=== PATIENT | male | born 2000 | race Caucasian/White ===

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

== ENCOUNTER 2021-05-09 18:12 | Emergency (ER) | payer MEDICAID ==
[~2021-05-09] VITALS: Ht 180.3 cm; Wt 65.0 kg
[~2021-05-09 18:12] MED LIST: ONDA4TAB12 PO
[2021-05-09] MEDS ORDERED: LORazepam 1 MG tablet PO ONE (18:20)
[2021-05-09 18:34] VITALS: BP 114/74
[2021-05-09] MEDS ORDERED: LORA-269 PO (18:48)
== END 2021-05-09 18:53 | disposition home or self-care (01) ==
LOC: ER 18:12
DX: R07.89 Other chest pain (principal); F41.9 Anxiety disorder, unspecified; R20.0 Anesthesia of skin; Z79.899 Other long term (current) drug therapy
CPT/HCPCS: 71045; 93005; 99283

== ENCOUNTER 2022-08-25 15:04 | Emergency (ER) | payer MEDICAID ==
[~2022-08-25] VITALS: Ht 182.9 cm; Wt 71.1 kg
[~2022-08-25 15:04] MED LIST changes: +LORA-269 PO
[2022-08-25 15:26] VITALS: BP 115/74
[2022-08-25 15:59] LABS: BASOPHILS # (AUTO) 0.1 X10'3 (0-0.2); BASOPHILS % (AUTO) 0.8 % (0-1); EOSINOPHILS # (AUTO) 0.6 X10'3 (0-0.9); EOSINOPHILS % (AUTO) 8.6 % (0-6); HEMATOCRIT 45.9 % (42.0-52.0); LYMPHOCYTES # (AUTO) 1.5 X10'3 (1.1-4.8); LYMPHOCYTES % (AUTO) 21.1 % (21-51); MEAN CORPUSCULAR HEMOGLOBIN 30.6 PG (27.0-31.0); MEAN CORPUSCULAR HGB CONC 34.7 g/dL (33.0-36.5); MEAN PLATELET VOLUME 7.2 FL (7.4-10.4); MONOCYTES # (AUTO) 0.5 X10'3 (0-0.9); MONOCYTES % (AUTO) 7.1 % (2-12); NEUTROPHILS # (AUTO) 4.4 X10'3 (1.8-7.7); NEUTROPHILS % (AUTO) 62.4 % (42-75); PLATELET COUNT 202 X10'3 (140-440); RED BLOOD COUNT 5.22 X10'6 (4.70-6.10); RED CELL DISTRIBUTION WIDTH 13.2 % (11.5-14.5); WHITE BLOOD COUNT 7.1 X10'3 (4.5-11.0)
[2022-08-25 16:06] LABS: ALANINE AMINOTRANSFERASE 10 U/L (12-78); ALBUMIN 4.5 G/DL (3.4-5.0); ALBUMIN/GLOBULIN RATIO 1.4 (1.1-1.5); ALKALINE PHOSPHATASE 85 IU/L (46-116); ANION GAP 3 (8-16); ASPARTATE AMINO TRANSFERASE 19 U/L (10-37); BILIRUBIN,TOTAL 0.5 MG/DL (0.1-1.0); BLOOD UREA NITROGEN 13 MG/DL (7-18); BUN/CREATININE RATIO 12.4 (5.4-32.0); CHLORIDE 102 MMOL/L (99-107); CREATININE 1.05 MG/DL (0.60-1.10); GLUCOSE 92 MG/DL (70-104); LIPASE 88 U/L (73-393); POTASSIUM 4.3 MMOL/L (3.5-5.1); SODIUM 138 MMOL/L (135-145); TOTAL CARBON DIOXIDE 32.6 MMOL/L (24-32); TOTAL PROTEIN 7.8 G/DL (6.4-8.2); eGFR 89 ML/MIN
[2022-08-25 16:11] LABS: CALCIUM 9.5 MG/DL (8.5-10.1)
[2022-08-25 16:43] LABS: CLARITY,URINE CLOUDY (Clear); COLOR,URINE YELLOW (Yellow); GLUCOSE, URINE NEGATIVE (Neg); KETONES,URINE NEGATIVE (Neg); LEUKOCYTE ESTERASE ,URINE NEGATIVE (Neg); NITRITES, URINE NEGATIVE (Neg); OCCULT BLOOD,URINE NEGATIVE (Neg); PH,URINE 7.5 (4.8-8.0); PROTEIN,URINE NEGATIVE (Neg); UROBILINOGEN,URINE 0.2 E.U/dL (0.2-1.0)
[2022-08-25 16:49] LABS: UA COLLECTION TYPE CLN CATCH MIDSTREAM
[2022-08-25 16:53] LABS: AMORPHOUS URATES 3+; BACTERIA,URINE FEW /HPF (Neg); MUCUS STRANDS MODERATE /LPF (Neg); RBC,URINE 0-2 /HPF (0-2); SQUAMOUS EPITHELIAL CELL,UR FEW /LPF (FEW); TRANSITIONAL EPI CELLS,URINE FEW /HPF; WBC,URINE 0-4 /HPF (0-4)
[2022-08-25] MEDS ORDERED: famotidine 20mg tablet PO ONE (17:40)
[2022-08-25] MEDS ORDERED: LIDOcaine Viscous 15ml cup MM ONE (17:40)
[2022-08-25] MEDS ORDERED: mag hydrox/Alum hydrox/simeth 30ml oral suspension PO ONE (17:40)
[2022-08-25] MEDS ORDERED: FAMO20TA47 PO (17:43)
[2022-08-25] MEDS ORDERED: BENZ1LOZ74 PO (17:43)
== END 2022-08-25 18:25 | disposition home or self-care (01) ==
LOC: ER 15:04
DX: J02.9 Acute pharyngitis, unspecified (principal); B34.9 Viral infection, unspecified; R19.7 Diarrhea, unspecified; R10.13 Epigastric pain; R50.9 Fever, unspecified; Z79.899 Other long term (current) drug therapy
CPT/HCPCS: 36415; 80053; 81001; 83690; 85025; 99284

== ENCOUNTER 2023-09-27 17:00 | Emergency (ER) | payer MEDICAID ==
[~2023-09-27 17:00] MED LIST changes: +BENZ1LOZ74 PO; +FAMO20TA47 PO
[2023-09-27 17:35] VITALS: BP 120/75; PULSE 83; TEMP 98; O2SAT 96
[2023-09-27 18:01] VITALS: RESP 17
[2023-09-27] MEDS: ketorolac trometh inj. 60 MG/2 ML VIAL IM ONE (18:01)
== END 2023-09-27 18:06 | disposition home or self-care (01) ==
LOC: ER 17:02
DX: M25.552 Pain in left hip (principal); Z79.899 Other long term (current) drug therapy
CPT/HCPCS: 96372; 99283; J1885

== ENCOUNTER → 2024-01-17 | Outpatient (CLI) | payer MEDICAID ==
[2024-01-17 14:25] VITALS: PULSE 79; RESP 15; O2SAT 98
[2024-01-17] MEDS: albuterol 2.5 MG/3 ML nebule NEB PRN (14:57)
== END | disposition home or self-care (01) ==
LOC: RT 13:54
PROVIDERS: ATTEND Nurse Practitioner
DX: J45.30 Mild persistent asthma, uncomplicated (principal)
CPT/HCPCS: 94060; 94760